=== PATIENT | male | born 1945 | race Caucasian/White ===

== ENCOUNTER → 2025-03-23 | Day surgery (SDC) | payer MEDICARE ==
[2025-03-17 09:03] VITALS: BMI 25.7
[~2025-03-23] MED LIST: Bupivacaine HCl 0.5%/Epinephrine 1:200,000/PF 30 ml Vial ONE; CEFAZOLIN 2 GM VIAL ONE; Lidocaine 1% PF 5 ML VIAL ONE; PROPOFOL 20 ML ONE; SUCCINYLCHOLINE/SOD CL,ISO/PF 200 MG/10 ML SYRINGE FS ONE; SUGAMMADEX SODIUM 200 MG/2 ML VIAL ONE; Sevoflurane 250 ML INH ANEST BOTTLE ONE
== END | disposition home or self-care (01) ==
LOC: CSHSDC 07:12
PROVIDERS: ATTEND Surgery
PROC: 0YQ54ZZ Repair Right Inguinal Region, Percutaneous Endoscopic Approach (ICD-10-PCS; principal; 2025-03-23)
DX: K40.90 Unilateral inguinal hernia, without obstruction or gangrene, not specified as recurrent (principal)
CPT/HCPCS: 49321; 49650; J1100; J2704; S2900; 88305; 88342